=== PATIENT | female | born 1965 | race Caucasian/White ===

== ENCOUNTER 2017-10-22 12:05 | Emergency (ER) | payer BC ==
[2017-10-22 23:29] LABS: BLOOD UREA NITROGEN 10 MG/DL (7-18); GLUCOSE, FASTING 134 MG/DL (70-100)
[2017-10-22 23:30] LABS: ALKALINE PHOSPHATASE 56 U/L (45-117); ALT/SGPT 42 U/L (12-78); ANION GAP 7 MEQ/L (8-16); AST/SGOT 22 U/L (7-37); BILIRUBIN,TOTAL 0.4 MG/DL (0.2-1.0); CALCIUM LEVEL 9.4 MG/DL (8.5-10.1); CARBON DIOXIDE LEVEL 26 MEQ/L (21-32); CHLORIDE LEVEL 103 MEQ/L (98-107); CK-MB VALUE MASS 1.2 NG/ML (<3.6); CPK CREATINE PHOSPHOKINASE 115 U/L (26-192); CREATININE FOR GFR 0.63 MG/DL (0.55-1.30); GLOMERULAR FILTRATION RATE > 60.0 (>51); POTASSIUM SERUM 4.4 MEQ/L (3.5-5.1); SODIUM LEVEL 136 MEQ/L (136-145)
[2017-10-22 23:31] LABS: ALBUMIN 4.4 GM/DL (3.2-5.2); ALBUMIN/GLOBULIN RATIO 1.19 (1.00-1.93); FREE T4 0.87 NG/DL (0.76-1.46); TOTAL PROTEIN 8.1 GM/DL (6.4-8.2); TROPONIN I < 0.02 NG/ML (< 0.10)
[2017-10-22 23:32] LABS: C REACTIVE PROTEIN QUANTITATIV 0.48 MG/DL (0.00-0.30)
[2017-10-23 08:07] LABS: HEMATOCRIT 43.2 % (36.0-47.0); HEMOGLOBIN 14.8 g/dl (12.0-15.5); MEAN CORPUSCULAR HEMOGLOBIN 31.6 pg (27.0-33.0); MEAN CORPUSCULAR HGB CONC 34.3 g/dl (32.0-36.5); MEAN CORPUSCULAR VOLUME 92.1 fl (80.0-96.0); PLATELET COUNT, AUTOMATED 349 10^3/uL (150-450); RED BLOOD COUNT 4.69 10^6/uL (4.00-5.40); RED CELL DISTRIBUTION WIDTH 12.3 % (11.5-14.5); WHITE BLOOD COUNT 10.7 10^3/uL (4.0-10.0)
[2017-10-23 15:40] LABS: BEDSIDE GLUCOSE 153 MG/DL (70-105)
== END 2017-10-22 19:35 | disposition home or self-care (01) ==
LOC: M ED 12:05
DX: E11.9 Type 2 diabetes mellitus without complications (principal); E03.9 Hypothyroidism, unspecified; R00.2 Palpitations; I10 Essential (primary) hypertension; R53.83 Other fatigue
CPT/HCPCS: 71046

== ENCOUNTER 2019-07-19 17:56 | Emergency (ER) | payer BC, OTHER ==
[~2019-07-19 17:56] MED LIST: LEVA250T; LOSA50TA88; VICO5TAB
[2019-07-19] MEDS ORDERED: GLIP10TA6 PO (18:22)
[2019-07-19] MEDS ORDERED: TIRO50CA3 PO (18:22)
[2019-07-19] MEDS ORDERED: ATOR1TAB19 PO (18:22)
[2019-07-19] MEDS ORDERED: ASPI81CH33 PO (18:22)
--- NOTE | 2019-07-19 19:10 | REP ---
Left thumb series: Four views. History: Trauma. Findings: Four views left thumb demonstrate osteoarthritic spurring and some narrowing of the IP joint. No fracture or subluxation is seen. Impression: Mild IP joint osteoarthritis. No fracture seen. Electronically Signed by Adolfo Morales MD 07/19/2019 07:02 P
--- NOTE | 2019-07-19 19:12 | REP ---
Unilateral right ribs series: Five views including PA chest. History: Trauma. Comparison chest x-ray: October 22, 2017. Findings: PA chest radiograph is normal. There is no evidence of pneumothorax or hydrothorax. Mediastinum is not widened. Heart size is normal. Multiple views of the right ribcage demonstrate no rib fracture or bony destructive lesion. Impression: Negative right rib radiographic series. Electronically Signed by Adolfo Morales MD 07/19/2019 07:03 P
[2019-07-19] MEDS ORDERED: NAPR-837 PO (19:45)
[2019-07-19] MEDS ORDERED: SOMA350T PO (19:45)
[2019-07-19 20:00] VITALS: BP 142/74
[2019-07-19] MEDS ORDERED: carisoprodoL 350 MG TAB PO ONE (20:00)
== END 2019-07-19 20:02 | disposition home or self-care (01) ==
LOC: M ED 17:56
DX: S20.20XA Contusion of thorax, unspecified, initial encounter (principal); S60.221A Contusion of right hand, initial encounter; V43.52XA Car driver injured in collision with other type car in traffic accident, initial encounter; Y92.9 Unspecified place or not applicable; Y93.9 Activity, unspecified; Y99.9 Unspecified external cause status; M19.041 Primary osteoarthritis, right hand; E11.9 Type 2 diabetes mellitus without complications; E07.9 Disorder of thyroid, unspecified; Z79.82 Long term (current) use of aspirin; Z79.84 Long term (current) use of oral hypoglycemic drugs; Z79.899 Other long term (current) drug therapy

== ENCOUNTER → 2019-09-30 | Outpatient (CLI) | payer BC ==
[~2019-09-30] MED LIST changes: +ASPI81CH33 PO; +ATOR1TAB19 PO; +GLIP10TA6 PO; +NAPR-837 PO; +SOMA350T PO; +TIRO50CA3 PO
[2019-09-30 14:19] LABS: FREE T4 1.09 NG/DL (0.76-1.46); THYROID STIMULATING HORMONE 1.9 uIU/ML (0.358-3.740)
== END ==
LOC: M LAB 13:05
PROVIDERS: ATTEND Internal Medicine Endocrinology, Diabetes & Metabolism
DX: E03.9 Hypothyroidism, unspecified (principal)

== ENCOUNTER → 2020-02-01 | Outpatient (CLI) | payer BC ==
[2020-02-01 13:40] LABS: FREE T4 0.99 NG/DL (0.76-1.46); THYROID STIMULATING HORMONE 1.97 uIU/ML (0.358-3.740)
== END ==
LOC: M LAB 12:18
PROVIDERS: ATTEND Nurse Practitioner Family
DX: E03.9 Hypothyroidism, unspecified (principal)

== ENCOUNTER → 2020-10-03 | Outpatient (CLI) | payer BC ==
[2020-10-03 14:14] LABS: THYROID STIMULATING HORMONE 4.47 uIU/ML (0.358-3.740)
== END ==
LOC: M LAB 12:18
PROVIDERS: ATTEND Internal Medicine Endocrinology, Diabetes & Metabolism
DX: E03.9 Hypothyroidism, unspecified (principal)

== ENCOUNTER → 2021-03-14 | Outpatient (CLI) | payer BC ==
--- NOTE | 2021-03-14 09:50 | REP ---
INDICATION: RT FLANK PAIN COMPARISON: None TECHNIQUE: Real time fisher scale and color Doppler ultrasound examination using curved array transducer. FINDINGS: Right kidney is normal in contour, size, echogenicity, vascularity and reniform shape without hydronephrosis, nephrolithiasis, cystic or renal mass lesion. Kidney measures 11.4 x 4.6 x 4.0 cm (RI 0.60). Left kidney measures 11.8 x 4.8 x 5.9 cm (RI 0.70) and demonstrates moderate to severe hydroureteronephrosis with a 7 mm obstructing calculus in the proximal ureter. Bladder is normal with bilateral ureteral jets identified. IMPRESSION: 1. Findings suggest partial left-sided obstructive uropathy (similar findings noted on CT dated 2008). <Electronically signed by Dex Zee > 03/14/21 [id number]
== END ==
LOC: M RAD 09:10
PROVIDERS: ATTEND Registered Nurse
DX: R10.31 Right lower quadrant pain (principal); N13.2 Hydronephrosis with renal and ureteral calculous obstruction

== ENCOUNTER → 2021-04-03 | Outpatient (CLI) | payer BC ==
[2021-04-03 13:24] LABS: FREE T4 0.92 NG/DL (0.76-1.46); THYROID STIMULATING HORMONE 5.99 uIU/ML (0.358-3.740)
== END ==
LOC: M LAB 11:26
PROVIDERS: ATTEND Nurse Practitioner Family
DX: E03.9 Hypothyroidism, unspecified (principal)

== ENCOUNTER → 2021-04-05 | Outpatient (CLI) | payer BC ==
--- NOTE | 2021-04-05 13:44 | REP ---
INDICATION: HYDRONEPHROSIS. COMPARISON: Ultrasound 03/14/2021, CT 01/14/2009. TECHNIQUE: Noncontrast scanning through the abdomen pelvis with coronal and sagittal reconstructions provided. FINDINGS: CT abdomen: Lung bases are clear. Heart not enlarged. There is no pericardial thickening or effusion. The liver, spleen, pancreas, adrenal glands and right kidney are unremarkable. The left kidney shows a moderately severe hydronephrosis and extrarenal pelvis there is a stone in the proximal ureter or 2 adjacent stones 1 larger and 1 smaller with combined length of 10.6 mm x 8 mm transverse. No stones within the kidney and the ureter below this point is normal caliber and without stone. Bladder well filled without stone, mass or wall thickening. The aorta has a few calcifications without aneurysm. There is no periaortic, mesenteric or other retroperitoneal pathologic sized lymphadenopathy. The gallbladder is not seen. Colon and small bowel loops are without acute inflammatory changes. No dilatation I see no ascites or free air in the abdomen or pelvis. Bone windows show lumbar and lower thoracic spine with some marginal osteophytes. Posterior elements intact. Visualized ribs unremarkable. CT pelvis: Sacrum, SI joints pelvis and hips with some degenerative change but no destructive lesion or fracture uterus anteverted, slightly tilted towards the right but not enlarged no adnexal mass or pelvic free fluid. Distal left colon, sigmoid and rectum grossly unremarkable small bowel loops grossly intact there are no inflammatory changes in the cecum to suggest appendicitis or other. There is no ventral or inguinal hernia nor pathologic sized inguinal adenopathy.. IMPRESSION: 1. Moderately severe hydronephrosis and extrarenal pelvis left kidney with a 10.6 x 8 mm stone or 2 adjacent stones in the proximal left ureter. 2. Remainder of the left ureter was normal and there is no stone or mass in the left kidney. The right kidney collecting system and ureter were normal. 3. No adenopathy, ascites, inflammatory changes small bowel, colon or cecum, mass or other acute finding. No perforation or free air. 4. Gallbladder not identified. Right kidney, adrenal glands, pancreas, spleen and stomach grossly intact <Electronically signed by Patrice Mcgowan > 04/05/21 [id number]
== END ==
LOC: M PLAIMG 12:37
PROVIDERS: ATTEND Urology
DX: N13.2 Hydronephrosis with renal and ureteral calculous obstruction (principal)

== ENCOUNTER → 2021-04-30 | Outpatient (CLI) | payer BC ==
[~2021-04-30] MED LIST changes: -LOSA50TA88; +LOSA50TA88 PO; +TIRO75CA3 PO
--- NOTE | 2021-04-30 09:54 | REP ---
INDICATION: LEFT UTRERAL STONE. COMPARISON: PA chest, 07/19/2019. TECHNIQUE: Upright PA and lateral chest images were obtained. FINDINGS: There is a stable 4 mm nodule in the upper lobe of the left lung. The lungs are otherwise clear. The heart borders mediastinum and pulmonary vascular pattern are normal. The upper abdominal bowel gas pattern is normal. There is mild multilevel degenerative disc disease of the thoracic spine. IMPRESSION: No evidence of acute cardiopulmonary pathology. No significant change. <Electronically signed by Alphonse Roque > 04/30/21 [id number]
== END ==
LOC: M RAD 09:32
PROVIDERS: ATTEND Urology
DX: N20.1 Calculus of ureter (principal)

== ENCOUNTER → 2021-04-30 | Outpatient (REF) | payer BC | LOC: M LAB REF 11:52 | PROVIDERS: ATTEND Internal Medicine | DX: Z01.818 Encounter for other preprocedural examination (principal) ==

== ENCOUNTER → 2021-05-02 | Outpatient (CLI) | payer BC | LOC: M LABSMTC 10:23 | PROVIDERS: ATTEND Anesthesiology | DX: Z01.812 Encounter for preprocedural laboratory examination (principal); Z20.822 Contact with and (suspected) exposure to COVID-19 ==

== ENCOUNTER 2021-05-07 09:32 | Day surgery (SDC) | payer BC ==
[~2021-05-07] VITALS: Ht 147.3 cm; Wt 61.1 kg
[~2021-05-07 09:32] MED LIST changes: +CIPROFLOXACIN 400 MG in IV 1 EA IV ONE; +LOSA50TA28 PO; -LOSA50TA88 PO; +LR 1,000 ML IV ONE
[2021-05-07] MEDS ORDERED: LIDOCAINE 2% 100MG/5ML SDV (FOR ANES.) As Ordered ONE (11:15)
[2021-05-07] MEDS ORDERED: propofoL 200 MG/20 ML VIAL As Ordered ONE (11:15)
[2021-05-07] MEDS ORDERED: ONDANSETRON 4MG/2ML VIAL As Ordered ONE (11:16)
[2021-05-07] MEDS ORDERED: fentaNYL 100 MCG/2 ML INJECTION As Ordered ONE (11:16)
[2021-05-07] MEDS ORDERED: MIDAZOLAM INJ 2MG/2ML VIAL (J2250 PER 1MG) As Ordered ONE (11:16)
[2021-05-07] MEDS ORDERED: dexameTHASONE 4 MG/ML 1ML VIAL (J1100 PER 1MG) As Ordered ONE (11:16)
[2021-05-07] MEDS ORDERED: CONRAY-60 60% 50ML VIAL (Q9961) As Ordered ONE (12:37)
[2021-05-07] MEDS ORDERED: ACETAMINOPHEN 1000MG 100ML IV BTL (OFIRMEV) (J0131 PER 10MG) As Ordered ONE (14:16)
[2021-05-07] MEDS ORDERED: METOCLOPRAMIDE INJ 10MG/2ML VIAL (J2765 PER 1) As Ordered ONE (14:18)
[2021-05-07] MEDS ORDERED: KETOROLAC 60MG 2ML VIAL As Ordered ONE (14:19)
[2021-05-07] MEDS ORDERED: OXYB5TAB10 PO (14:28)
[2021-05-07] MEDS ORDERED: HYDR-3713 PO (14:28)
[2021-05-07] MEDS ORDERED: BACT800T5 PO (14:28)
[2021-05-07] MEDS ORDERED: PYRI1TAB5 PO (14:28)
[2021-05-07] MEDS ORDERED: ONDANSETRON 4MG/2ML VIAL IV PRN (14:55)
[2021-05-07] MEDS ORDERED: LR 1,000 ML IV SCH (14:55)
[2021-05-07] MEDS ORDERED: PERCOCET 5MG/325MG TAB PO PRN (14:55)
[2021-05-07] MEDS ORDERED: fentaNYL 100 MCG/2 ML INJECTION IV PRN (14:55)
[2021-05-07 17:25] VITALS: BP 135/70
[2021-05-14 15:07] LABS: Ca Ox Monohydrate 100 % (.); Size 2x2 mm (.)
== END 2021-05-07 17:49 | disposition home or self-care (01) ==
LOC: M SDC 09:32
PROVIDERS: ATTEND Urology
DX: N20.1 Calculus of ureter (principal); I10 Essential (primary) hypertension; E11.9 Type 2 diabetes mellitus without complications; E03.9 Hypothyroidism, unspecified; Z79.82 Long term (current) use of aspirin; Z79.899 Other long term (current) drug therapy
CPT/HCPCS: 52356; 74420; 82365; 88300; C1769; C2617; J0131; J0744; J1100; J1885; J2250; J2405; J2765; J3010; Q9961

== ENCOUNTER → 2021-07-03 | Outpatient (CLI) | payer BC ==
[~2021-07-03] MED LIST changes: +BACT800T5 PO; -CIPROFLOXACIN 400 MG in IV 1 EA IV ONE; +HYDR-3713 PO; -LR 1,000 ML IV ONE; +OXYB5TAB10 PO; +PYRI1TAB5 PO
[2021-07-03 14:24] LABS: FREE T4 1.31 NG/DL (0.76-1.46); THYROID STIMULATING HORMONE 0.099 uIU/ML (0.358-3.740)
== END ==
LOC: M LAB 12:59
PROVIDERS: ATTEND Nurse Practitioner Family
DX: E03.9 Hypothyroidism, unspecified (principal)

== ENCOUNTER → 2021-09-10 | Outpatient (REF) | payer BC | LOC: M LAB REF 16:57 | PROVIDERS: ATTEND Internal Medicine | DX: R19.7 Diarrhea, unspecified (principal) ==

== ENCOUNTER → 2021-09-20 | Outpatient (CLI) | payer BC | LOC: M WHC 09:44 | PROVIDERS: ATTEND Internal Medicine | DX: Z12.31 Encounter for screening mammogram for malignant neoplasm of breast (principal) ==

== ENCOUNTER → 2021-10-01 | Outpatient (CLI) | payer BC ==
[2021-10-01 13:03] LABS: FREE T4 1.44 NG/DL (0.76-1.46); THYROID STIMULATING HORMONE 0.159 uIU/ML (0.358-3.740)
== END ==
LOC: M LAB 11:54
PROVIDERS: ATTEND Nurse Practitioner Family
DX: E03.9 Hypothyroidism, unspecified (principal)

== ENCOUNTER → 2021-10-05 | Outpatient (CLI) | payer BC | LOC: M RAD 07:07 | DX: N20.0 Calculus of kidney (principal) ==

== ENCOUNTER → 2021-11-14 | Outpatient (CLI) | payer BC ==
[~2021-11-14] MED LIST changes: +LOSA25TA13 PO
== END ==
LOC: M LABSMTC 11:32
PROVIDERS: ATTEND Anesthesiology
DX: Z01.818 Encounter for other preprocedural examination (principal); Z20.822 Contact with and (suspected) exposure to COVID-19

== ENCOUNTER 2021-11-19 06:28 | Day surgery (SDC) | payer BC ==
[~2021-11-19] VITALS: Ht 147.3 cm; Wt 51.4 kg
[2021-11-19] MEDS: CYCLOPENTOLATE 1% OPHTH SOLN 2 ML BTL OS SCH ×3 (06:55→07:22)
[2021-11-19] MEDS: TETRACAINE 0.5% OPHTH SOLN 4ML OS SCH (06:55)
[2021-11-19] MEDS: FLURBIPROFEN 0.03% OPHTH SOLN 2.5 ML OS SCH ×3 (06:55→07:22)
[2021-11-19] MEDS: PHENYLEPHRINE 2.5% OPHTH SOL 2ML OS SCH ×3 (06:55→07:22)
[2021-11-19] MEDS ORDERED: LIDOCAINE 1% SDV 5ML VIAL As Ordered ONE (07:00)
[2021-11-19] MEDS ORDERED: ACETYLCHOLINE OPHTH SOLN 1% 2ML (MIOCHOL-E) As Ordered ONE (07:00)
[2021-11-19] MEDS ORDERED: LR 1,000 ML IV SCH (07:00)
[2021-11-19 08:50] VITALS: BP 140/74
[2021-11-19] MEDS ORDERED: MIDAZOLAM INJ 2MG/2ML VIAL (J2250 PER 1MG) As Ordered ONE (08:50)
[2021-11-19] MEDS ORDERED: fentaNYL 100 MCG/2 ML INJECTION As Ordered ONE (08:50)
== END 2021-11-19 09:30 | disposition home or self-care (01) ==
LOC: M SDC 06:28
PROVIDERS: ATTEND Ophthalmology
DX: H25.12 Age-related nuclear cataract, left eye (principal); I10 Essential (primary) hypertension; E11.9 Type 2 diabetes mellitus without complications; E03.9 Hypothyroidism, unspecified; Z79.899 Other long term (current) drug therapy
CPT/HCPCS: 66984; J2250; J3010

== ENCOUNTER → 2021-12-12 | Outpatient (CLI) | payer BC | LOC: M LABSMTC 11:10 | PROVIDERS: ATTEND Anesthesiology | DX: Z01.812 Encounter for preprocedural laboratory examination (principal); Z20.822 Contact with and (suspected) exposure to COVID-19 ==

== ENCOUNTER 2021-12-17 06:16 | Day surgery (SDC) | payer BC ==
[~2021-12-17] VITALS: Ht 147.3 cm; Wt 51.3 kg
[2021-12-17] MEDS ORDERED: ACETYLCHOLINE OPHTH SOLN 1% 2ML (MIOCHOL-E) As Ordered ONE (06:32)
[2021-12-17] MEDS ORDERED: LIDOCAINE 1% SDV 5ML VIAL As Ordered ONE (06:32)
[2021-12-17] MEDS: PHENYLEPHRINE 2.5% OPHTH SOL 2ML OD SCH ×3 (06:54→07:00)
[2021-12-17] MEDS: TETRACAINE 0.5% OPHTH SOLN 4ML OD SCH (06:54)
[2021-12-17] MEDS: FLURBIPROFEN 0.03% OPHTH SOLN 2.5 ML OD SCH ×3 (06:54→07:00)
[2021-12-17] MEDS: CYCLOPENTOLATE 1% OPHTH SOLN 2 ML BTL OD SCH ×3 (06:54→07:00)
[2021-12-17] MEDS ORDERED: LR 1,000 ML IV SCH (07:00)
[2021-12-17] MEDS ORDERED: MIDAZOLAM INJ 2MG/2ML VIAL (J2250 PER 1MG) As Ordered ONE (07:05)
[2021-12-17 08:15] VITALS: BP 128/83
== END 2021-12-17 08:34 | disposition home or self-care (01) ==
LOC: M SDC 06:16
PROVIDERS: ATTEND Ophthalmology
DX: H25.11 Age-related nuclear cataract, right eye (principal); I10 Essential (primary) hypertension; E11.9 Type 2 diabetes mellitus without complications; E03.9 Hypothyroidism, unspecified; Z79.899 Other long term (current) drug therapy
CPT/HCPCS: 66984; J2250

== ENCOUNTER → 2021-12-19 | Outpatient (CLI) | payer BC ==
[2021-12-19 13:09] LABS: FREE T4 1.28 NG/DL (0.76-1.46); THYROID STIMULATING HORMONE 0.104 uIU/ML (0.358-3.740)
[2021-12-19 13:46] LABS: CREATININE, URINE 83.4 MG/DL; CREATININE,RANDOM URINE 83.4 MG/DL; MALB URINE SIEMENS 10.8 MG/L; MAU/CREAT RATIO 12.9 MCG/MG (0.0-30.0)
== END ==
LOC: M LAB 11:52
PROVIDERS: ATTEND Nurse Practitioner Family
DX: E03.9 Hypothyroidism, unspecified (principal); E11.65 Type 2 diabetes mellitus with hyperglycemia

== ENCOUNTER → 2022-02-08 | Outpatient (REF) | payer BC | LOC: M LAB REF 16:02 | PROVIDERS: ATTEND Internal Medicine | DX: N39.0 Urinary tract infection, site not specified (principal) ==

== ENCOUNTER → 2022-04-25 | Outpatient (CLI) | payer BC ==
[2022-04-25 12:34] LABS: THYROID STIMULATING HORMONE 0.525 uIU/ML (0.55-4.78)
[2022-04-25 12:37] LABS: FREE T4 1.39 NG/DL (0.89-1.76)
== END ==
LOC: M LAB 11:13
PROVIDERS: ATTEND Nurse Practitioner Family
DX: E03.9 Hypothyroidism, unspecified (principal)

== ENCOUNTER → 2022-05-29 | Outpatient (CLI) | payer BC | LOC: M WHC 09:38 | PROVIDERS: ATTEND Nurse Practitioner Family | DX: N95.1 Menopausal and female climacteric states (principal); Q96.9 Turner's syndrome, unspecified; M85.88 Other specified disorders of bone density and structure, other site ==

== ENCOUNTER → 2022-06-25 | Outpatient (REF) | payer BC | LOC: M LAB REF 12:09 | PROVIDERS: ATTEND Internal Medicine | DX: Q96.9 Turner's syndrome, unspecified (principal) ==

== ENCOUNTER → 2022-09-27 | Outpatient (CLI) | payer BC | LOC: M WHC 10:47 | PROVIDERS: ATTEND Internal Medicine | DX: Z12.31 Encounter for screening mammogram for malignant neoplasm of breast (principal); Z80.3 Family history of malignant neoplasm of breast; R92.8 Other abnormal and inconclusive findings on diagnostic imaging of breast ==

== ENCOUNTER → 2022-10-17 | Outpatient (CLI) | payer BC ==
[2022-10-17 15:00] LABS: ALBUMIN 4.3 G/DL (3.2-5.2); ALKALINE PHOSPHATASE 50 U/L (46-116); ALT/SGPT 23 U/L (7.0-40); AST/SGOT 19 U/L (<34); BILIRUBIN,TOTAL 0.8 MG/DL (0.3-1.2); BLOOD UREA NITROGEN 22 MG/DL (9-23); CALCIUM LEVEL 9.8 MG/DL (8.5-10.1); CARBON DIOXIDE LEVEL 28 MMOL/L (20-31); CHLORIDE LEVEL 104 MMOL/L (98-107); CREATININE FOR GFR 0.59 MG/DL (0.55-1.30); GLOMERULAR FILTRATION RATE > 60.0 (>51); GLUCOSE, FASTING 106 MG/DL (60-100); POTASSIUM SERUM 4.6 MMOL/L (3.5-5.1); SODIUM LEVEL 139 MMOL/L (136-145); TOTAL PROTEIN 6.9 G/DL (5.7-8.2)
[2022-10-17 15:01] LABS: FREE T4 1.45 NG/DL (0.89-1.76); THYROID STIMULATING HORMONE 0.642 uIU/ML (0.55-4.78); TOTAL 25(OH) VITAMIN D 21.6 NG/ML (20.0-100.0)
== END ==
LOC: M PLALAB 11:41
PROVIDERS: ATTEND Internal Medicine
DX: E03.9 Hypothyroidism, unspecified (principal); Q96.9 Turner's syndrome, unspecified

== ENCOUNTER → 2022-10-17 | Outpatient (CLI) | payer BC | LOC: M WHC 09:33 | PROVIDERS: ATTEND Internal Medicine | DX: R92.8 Other abnormal and inconclusive findings on diagnostic imaging of breast (principal) | CPT/HCPCS: 76642; 77065; G0279 ==

== ENCOUNTER 2022-12-16 09:10 | Day surgery (SDC) | payer BC ==
[~2022-12-16] VITALS: Ht 147.3 cm; Wt 51.7 kg
[~2022-12-16 09:10] MED LIST changes: +NS 1,000 ML IV ONE
[2022-12-16] MEDS ORDERED: propofoL 200 MG/20 ML VIAL As Ordered ONE ×2 (10:57→11:07)
[2022-12-16] MEDS ORDERED: ONDANSETRON 4MG 2ML VIAL As Ordered ONE (10:59)
[2022-12-16 11:40] VITALS: BP 117/73; O2SAT 99
== END 2022-12-16 11:56 | disposition home or self-care (01) ==
LOC: M OPP 09:10
PROVIDERS: ATTEND Internal Medicine Gastroenterology
DX: Z86.010 Personal history of colon polyps (principal); K64.0 First degree hemorrhoids; Z79.02 Long term (current) use of antithrombotics/antiplatelets
CPT/HCPCS: 45378; J2405

== ENCOUNTER → 2023-10-24 | Outpatient (CLI) | payer BC, SELFPAY ==
[~2023-10-24] MED LIST changes: -NS 1,000 ML IV ONE; -OXYB5TAB10 PO; +OXYB5TAB14 PO
== END ==
LOC: M WHC 11:28
PROVIDERS: ATTEND Internal Medicine
DX: Z12.31 Encounter for screening mammogram for malignant neoplasm of breast (principal); R92.323 Mammographic fibroglandular density, bilateral breasts; Z80.3 Family history of malignant neoplasm of breast

== ENCOUNTER → 2023-12-26 | Outpatient (CLI) | payer BC | LOC: M CARPUL 09:03 | PROVIDERS: ATTEND Internal Medicine | DX: Q23.3 Congenital mitral insufficiency (principal) ==

== ENCOUNTER → 2025-01-05 | Outpatient (REF) | payer BC ==
[~2025-01-05] MED LIST changes: +GLIP10TA15 PO; -GLIP10TA6 PO
== END ==
LOC: M LAB REF 14:13
PROVIDERS: ATTEND Internal Medicine
DX: R19.7 Diarrhea, unspecified (principal)

== ENCOUNTER 2025-01-28 13:19 | Emergency (ER) | payer BC ==
[~2025-01-28] VITALS: Ht 147.3 cm; Wt 58.2 kg
[2025-01-28 13:25] VITALS: BP 143/66; TEMP 97.9; O2SAT 99
== END 2025-01-28 15:15 | disposition left against medical advice (07) ==
LOC: M ED 13:19
DX: Z53.21 Procedure and treatment not carried out due to patient leaving prior to being seen by health care provider (principal)

== ENCOUNTER → 2025-01-31 | Outpatient (CLI) | payer BC | LOC: M WUC 13:58 | PROVIDERS: ATTEND Internal Medicine | DX: M25.571 Pain in right ankle and joints of right foot (principal); M25.572 Pain in left ankle and joints of left foot ==